=== PATIENT | male | born 1945 | race African-American/Black ===

== ENCOUNTER 2018-01-09 19:31 | Inpatient (IN) | payer MEDICARE, MEDICAID ==
[~2018-01-09] VITALS: Ht 180.3 cm; Wt 62.6 kg
[2018-01-09 20:00] VITALS: BP 104/66
[2018-01-09 21:21] VITALS: BP 104/64
[2018-01-10 04:00] VITALS: BP 100/59
[2018-01-10 06:55] LABS: BASOPHILS % 0.7 % (0.0-2.0); EOSINOPHILS % 8.9 % (0.0-5.0); HEMATOCRIT. 39.1 % (42.0-52.0); HEMOGLOBIN. 13.2 g/dL (14.0-18.0); LYMPHOCYTES % 22.4 % (20.0-50.0); MEAN CORPUSCULAR HEMOGLOBIN 32.2 pg (28.0-32.0); MEAN CORPUSCULAR VOLUME 95.2 fL (80.0-94.0); MEAN PLATELET VOLUME 9.8 fl (7.4-10.4); MONOCYTES % 14.6 % (2.0-8.0); NEUTROPHILS % 53.4 % (40.0-76.0); PLATELET 270 x1000/uL (130-400); RED BLOOD CELL COUNT 4.11 mill/uL (4.7-6.1); RED CELL DISTRIBUTION WIDTH 12.7 % (11.6-14.6)
[2018-01-10] MEDS ORDERED: MAGNESIUM HYDROXIDE 400MG/5ML 30ML UDC PO PRN (07:45)
[2018-01-10] MEDS ORDERED: BISACODYL 10MG SUPP PR PRN (07:45)
[2018-01-10] MEDS ORDERED: MAGN800O PO (07:51)
[2018-01-10 08:00] VITALS: BP 131/65
[2018-01-10 08:05] LABS: CHLORIDE 106 mEq/L (98-107)
[2018-01-10 08:16] LABS: HDL CHOLESTEROL 39 mg/dL (40-59); LDL CHOLESTEROL 99 mg/dL (5-100)
[2018-01-10] MEDS: MULTIVITAMINS,THER W-MINERALS TABLET PO SCH (08:51)
[2018-01-10] MEDS ORDERED: NA PHOS,M-B/NA PHOS,DI-BA ENEMA 118ML PR PRN (09:00)
[2018-01-10 12:06] VITALS: BP 109/69
[2018-01-10 16:00] VITALS: BP 110/80
[2018-01-10 21:00] VITALS: BP 113/71
[2018-01-11 08:00] VITALS: BP 100/70
[2018-01-11] MEDS: MULTIVITAMINS,THER W-MINERALS TABLET PO SCH (08:03)
[2018-01-11 12:00] VITALS: BP 110/60
[2018-01-11 16:00] VITALS: BP 114/70
[2018-01-12 08:00] VITALS: BP 128/70
[2018-01-12] MEDS: MULTIVITAMINS,THER W-MINERALS TABLET PO SCH (09:00)
[2018-01-12 09:32] VITALS: BP 128/70
== END 2018-01-12 12:25 | DRG 948 ==
LOC: 6EST 19:31
PROVIDERS: ADMIT Internal Medicine; ATTEND Internal Medicine
DX: R53.1 Weakness (principal); D64.9 Anemia, unspecified; H40.9 Unspecified glaucoma; I10 Essential (primary) hypertension
CPT/HCPCS: 36415; 80053; 80061; 84484; 85025; 87040; 97161

== ENCOUNTER 2020-02-01 12:28 | Emergency (ER) | payer MEDICARE, MEDICAID ==
[~2020-02-01] VITALS: Ht 180.3 cm; Wt 64.0 kg
[~2020-02-01 12:28] MED LIST: MAGN24002 PO
[2020-02-01 12:32] VITALS: BP 128/79
[2020-02-01] MEDS ORDERED: IBUPROFEN 600MG TABLET PO ONE (14:00)
== END 2020-02-01 15:53 | disposition home or self-care (01) ==
LOC: ER 12:28
DX: M25.551 Pain in right hip (principal)
CPT/HCPCS: 73502; 73700; 99284